=== PATIENT | female | born 1975 | race Caucasian/White ===

== ENCOUNTER 2022-02-07 15:53 | Outpatient (CLI) | payer MEDICAID, SELFPAY ==
--- NOTE | 2022-02-07 16:10 | RAD_ITS ---
STUDY: RIGHT KNEE--2 VIEWS 1619 HOURS 02/07/2022 REASON FOR EXAM: 46-year-old female with right knee pain. TECHNIQUE: 2 view(s) of the knee. COMPARISON: None. FINDINGS: Normal visualized distal femur. Normal visualized proximal tibia and fibula. Normal proximal tibiofibular articulation. Normal medial femorotibial compartment. Normal lateral femorotibial compartment. Normal patellofemoral articulation. No osseous lytic, sclerotic or mass lesions. Minimal osteophytic degenerative change of the upper patella. No significant arthritic or degenerative changes of the knee joint, which is balanced. The soft tissue structures are unremarkable. RAD/Knee 1 or 2 Views IMPRESSION: 1. Minimal osteophytic degenerative changes of the upper patella. 2. No significant arthritic or degenerative changes of the knee joint. 3. No fractures or dislocations. 4. No osseous lytic, sclerotic or mass lesions. 5. Normal surrounding soft tissues. Electronically Signed: Blaise Delaney MD at 19:45 EDT ,
[2022-02-07 16:48] LABS: Absolute Lymphocyte Count 2.23 X10^3/uL (0.83-4.51); Absolute Neutrophil Count 7.8 X10^3/uL (2.0-7.7); Basophil# 0.05 X10^3/uL; Basophil% 0.5 % (0-1); Eosinophils% 0.9 % (0-5); Hemoglobin 11.6 g/dL (12.0-15.0); Lymphocyte # 2.23 X10^3/ul (0.83-4.51); Lymphocyte % 20.4 % (19-41); Mean Corp Hgb Conc 33.1 g/dL (32-36); Mean Corpuscular Hgb 29.3 pg (27.0-32.0); Mean Corpuscular Volume 88.4 fL (81-99); Mean Platelet Vol. 9.9 fl (6.2-12.0); Monocyte# 0.72 X10^3/uL; Monocyte% 6.6 % (0-10); NRBC Flagged by Analyzer 0 % (0-5); Neutrophil % 71.1 % (47-70); Platelet Count 385 K/mm3 (150-450); RBC Distribution Width CV 12.6 % (11.6-14.6); RBC Distribution Width SD 40.9 fl (35.1-43.9); Red Blood Count 3.96 M/mm3 (4.2-5.4)
[2022-02-07 17:20] LABS: ALB/GLOB Ratio 0.8 RATIO (0.9-2.4); AST(SGOT) 12 U/L (15-37); Alanine Aminotransfer ALT/SGPT 17 U/L (13-56); Albumin, Serum 3.4 g/dL (3.2-5.0); Alkaline Phosphatase 64 U/L (45-117); Anion Gap 5 (5-15); BUN 7 mg/dL (7-18); BUN/Creat Ratio 11.1 RATIO (10-20); Calcium,Total 9.1 mg/dL (8.5-10.1); Chloride 108 mmol/L (98-107); Creatinine, Serum 0.63 mg/dL (0.55-1.02); EST Glomerular Filtration Rate 108 mL/min (>60); Est Glom Filt Rate - Afr Amer 131 mL/min (>60); Globulin 4.2 g/dL (2.2-4.2); Glucose 90 mg/dL (74-106); Potassium 3.9 mmol/L (3.5-5.1); Protein, Total 7.6 g/dL (6.4-8.2); Sodium Level 139 mmol/L (136-145); T4 Free Direct 0.92 ng/dL (0.76-1.46); Thyroid Stim Hormone (TSH) 1.09 uIU/mL (0.358-3.74)
[2022-02-08 11:10] LABS: Iron 98 ug/dL (50-170); Iron Binding Capacity,Total 449 ug/dL (250-450)
== END 2022-02-07 23:59 | disposition home or self-care (01) ==
PROVIDERS: Referring Provider Nurse Practitioner Adult Health; Visit Provider Nurse Practitioner Adult Health
DX: R53.83 Other fatigue (principal); D64.9 Anemia, unspecified; M25.561 Pain in right knee
CPT/HCPCS: 36415; 73560; 80053; 82746; 83540; 83550; 84439; 84443; 85025

== ENCOUNTER 2022-02-16 11:19 | Outpatient (CLI) | payer MEDICAID, SELFPAY ==
--- NOTE | 2022-02-16 11:24 | US_ITS ---
STUDY: ULTRASOUND OF THE FEMALE PELVIS - COMPLETE REASON FOR EXAM: Female, 46 years old. 3 month history of dysmenorrhea and left pelvic pain. LMP: 02/12/2022. TECHNIQUE: Transabdominal and Transvaginal TECHNICAL QUALITY: Adequate. COMPARISON: None. FINDINGS: The uterus is anteverted and is in a midline position. The uterus measures 9.5 cm x 5.1 cm x 4.6 cm. There is a Nabothian cyst of the cervix. The endometrium measures 6 mm in thickness, and is hyperechoic. There is no demonstrated endometrial mass. There is a 3 cm x 2.3 cm x 2.2 cm fibroid in the body of the uterus. I.U.D. - The patient does not have an I.U.D. The right ovary is visualized. The right ovary measures 2.9 cm by 2.4 cm x 1.6 cm. There is no right ovarian cyst or ovarian mass. There is no visualized right adnexal mass or complex lesion. There is normal arterial and normal venous vascularity. The left ovary is visualized. The left ovary is enlarged and measures 7 cm x 4.7 cm x 3.9 cm. There is a 3.5 cm x 3.5 cm x 3.5 cm complex cyst in the ovary. This may represent an hemorrhagic cyst. There is also evidence of a slightly complex echogenic nodule which shadowing measuring 3.2 cm x 3.6 x 3.3 cm in the left ovary. A dermoid should BE ruled out. There is no visualized left adnexal mass or complex lesion. There is normal arterial and normal venous vascularity. There is no fluid in the cul-de-sac. The pre void volume of the bladder was 416 ml. US/Pelvic (Non ) IMPRESSION: The left ovary is enlarged. There is a 3.5 cm x 3.5 cm x 3.5 cm complex cyst in the left ovary. There is also evidence of a 3.2 cm x 3.6 cm x 3.3 cm hyperechoic nodule with posterior acoustical shadowing in the left ovary. A dermoid should BE ruled out. Electronically Signed: Titus Brower MD at 13:52 EDT ,
--- NOTE | 2022-02-16 11:55 | US_ITS ---
STUDY: ULTRASOUND OF THE FEMALE PELVIS - COMPLETE REASON FOR EXAM: Female, 46 years old. 3 month history of dysmenorrhea and left pelvic pain. LMP: 02/12/2022. TECHNIQUE: Transabdominal and Transvaginal TECHNICAL QUALITY: Adequate. COMPARISON: None. FINDINGS: The uterus is anteverted and is in a midline position. The uterus measures 9.5 cm x 5.1 cm x 4.6 cm. There is a Nabothian cyst of the cervix. The endometrium measures 6 mm in thickness, and is hyperechoic. There is no demonstrated endometrial mass. There is a 3 cm x 2.3 cm x 2.2 cm fibroid in the body of the uterus. I.U.D. - The patient does not have an I.U.D. The right ovary is visualized. The right ovary measures 2.9 cm by 2.4 cm x 1.6 cm. There is no right ovarian cyst or ovarian mass. There is no visualized right adnexal mass or complex lesion. There is normal arterial and normal venous vascularity. The left ovary is visualized. The left ovary is enlarged and measures 7 cm x 4.7 cm x 3.9 cm. There is a 3.5 cm x 3.5 cm x 3.5 cm complex cyst in the ovary. This may represent an hemorrhagic cyst. There is also evidence of a slightly complex echogenic nodule which shadowing measuring 3.2 cm x 3.6 x 3.3 cm in the left ovary. A dermoid should BE ruled out. There is no visualized left adnexal mass or complex lesion. There is normal arterial and normal venous vascularity. There is no fluid in the cul-de-sac. The pre void volume of the bladder was 416 ml. US/Transvaginal Non- IMPRESSION: The left ovary is enlarged. There is a 3.5 cm x 3.5 cm x 3.5 cm complex cyst in the left ovary. There is also evidence of a 3.2 cm x 3.6 cm x 3.3 cm hyperechoic nodule with posterior acoustical shadowing in the left ovary. A dermoid should BE ruled out. Electronically Signed: Titus Brower MD at 13:52 EDT ,
== END 2022-02-16 23:59 | disposition home or self-care (01) ==
LOC: US 11:19
PROVIDERS: Visit Provider Nurse Practitioner Adult Health
DX: N94.6 Dysmenorrhea, unspecified (principal); R10.2 Pelvic and perineal pain; N83.519 Torsion of ovary and ovarian pedicle, unspecified side; R19.00 Intra-abdominal and pelvic swelling, mass and lump, unspecified site
CPT/HCPCS: 76830; 76856; 93976

== ENCOUNTER → 2022-03-22 | Outpatient (CLI) | payer MEDICAID, SELFPAY ==
--- NOTE | 2022-03-22 13:03 | BI_ITS ---
MAMMOGRAPHY - BILATERAL SCREENING REASON FOR EXAM: Female, 46 years old. Routine annual screening examination. PERTINENT HISTORY: Mother with breast cancer. Grandmother with breast cancer. History of prior bilateral breast reduction surgery. TECHNIQUE: Digital bilateral breast amada (3D mammographic acquisition) in the CC and MLO projections. 2-D mediolateral oblique (MLO) and craniocaudad (CC) views of both breasts were obtained. CAD: Full Field Digital Mammography with Computer Added Detection was performed. COMPARISON: Comparison is made with prior abdomen examination dated 12/27/2016. FINDINGS: Breast Composition: There are scattered areas of fibroglandular density. There are no dominant masses or suspicious calcifications. Stable small benign-appearing bilateral axillary lymph nodes. No other significant abnormalities are identified. There has been no significant change since the prior study. BI/SCRN MAMM (CAD)W/AMADA BILAT IMPRESSION: Stable bilateral screening mammogram. Yearly follow-up mammogram recommended. (A) ASSESSMENT CATEGORY: BIRADS Category 2: Benign. A letter regarding these results will be sent to the patient by the facility within 30 days. Approximately 10% of breast cancers are not detected by mammography. A normal mammogram should not delay biopsy of a clinically suspicious abnormality. [id number] Electronically Signed: Titus Brower MD at 14:15 EDT ,
== END | disposition home or self-care (01) ==
LOC: OPBI 13:01
PROVIDERS: Referring Provider Nurse Practitioner Adult Health; Visit Provider Nurse Practitioner Adult Health
DX: Z12.31 Encounter for screening mammogram for malignant neoplasm of breast (principal); Z80.3 Family history of malignant neoplasm of breast
CPT/HCPCS: 77063; 77067

== ENCOUNTER → 2024-06-19 | Outpatient (CLI) | payer BC, SELFPAY ==
--- NOTE | 2024-06-19 15:26 | BI_ITS ---
MAMMOGRAPHY - BILATERAL SCREENING REASON FOR EXAM: Female, 48 years old. Routine annual screening examination. PERTINENT HISTORY: Mother with breast cancer. Grandmother with breast cancer. TECHNIQUE: Digital bilateral breast amada (3D mammographic acquisition) in the CC and MLO projections. 2-D mediolateral oblique (MLO) and craniocaudad (CC) views of both breasts were obtained. CAD: Full Field Digital Mammography with Computer Added Detection was performed. COMPARISON: Comparison is made with prior study March 22, 2022. FINDINGS: Breast Composition: The breasts are almost entirely fatty. There are no dominant masses or suspicious calcifications. Stable small axillary lymph nodes. No other significant abnormalities are identified. There has been no significant change since the prior study. BI/SCRN MAMM (CAD)W/AMADA BILAT IMPRESSION: Stable bilateral screening mammogram. Yearly follow-up mammogram recommended. (A) ASSESSMENT CATEGORY: BIRADS Category 2: Benign. A letter regarding these results will be sent to the patient by the facility within 30 days. Approximately 10% of breast cancers are not detected by mammography. A normal mammogram should not delay biopsy of a clinically suspicious abnormality. [id number] Electronically Signed: Titus Brower MD at 8:46 EDT ,
== END | disposition home or self-care (01) ==
LOC: OPBI 15:24
PROVIDERS: Referring Provider Nurse Practitioner Family; Visit Provider Nurse Practitioner Family
DX: Z12.31 Encounter for screening mammogram for malignant neoplasm of breast (principal)
CPT/HCPCS: 77063; 77067

== ENCOUNTER 2024-11-29 10:09 | Day surgery (SDC) | payer BC, SELFPAY ==
--- NOTE | 2024-11-11 12:32 | PCM.HP.BLA ---
History and Physical Date of Admission: 11/29/24 HPI: The patient is a 49 year old female presenting for pre-operative visit. She is scheduled for laparoscopic left salpingo-oophorectomy and right salpingectomy, for left ovarian dermoid cyst and sterilization request on 11/29/23. Procedure discussed along with risks, benefits and complications. Other alternatives discussed for management. Consent form signed? Yes. PAST MEDICAL HISTORY PAST MEDICAL HISTORY Diagnosis Date ? Dermoid cyst 2 on one ovary ? Migraine ? Obesity (BMI 30-39.9) PAST SURGICAL HISTORY PAST SURGICAL HISTORY Procedure Laterality Date ? CAUTERY CERVIX CRYOCAUTERY INITIAL/REPEAT CERVIX ? SECTION HX 2004 ? COLPOSCOPY CERVIX VAG LOOP ELTRD BX CERVIX LEEP- ? INSERTION OF IUD 05/11/2022 Mirena ? REVISE BREAST RECONSTRUCTION 1992 REDUCTION CURRENT MEDICATIONS Current Outpatient Medications Medication Sig Dispense Refill ? levonorgestrel (MIRENA) 20 mcg/24 hours (7 yrs) 52 mg IUD 1 Each by INTRAUTERINE route as directed. 1 Each 0 ? ibuprofen (MOTRIN ORAL) Take by mouth. No current facility-administered medications for this visit. ALLERGIES: Amoxicillin and Sulfa (Sulfonamide Antibiotics) PERSONAL HISTORY: SOCIAL HISTORY Social History Tobacco Use ? Smoking status: Never ? Smokeless tobacco: Never Vaping Use ? Vaping status: Never Used Substance Use Topics ? Alcohol use: No ? Drug use: No FAMILY HISTORY: FAMILY HISTORY FAMILY HISTORY Problem Relation Age of Onset ? Breast Cancer Mother triple negative ? Hypertension Father ? other (bladder cancer) Paternal Grandmother REVIEW OF SYMPTOMS: GENERAL: denies fevers or chills ENDOCRINOLOGY: has not been on steroids Cardiology : denies palpitations or chest pain Respiratory: denies SOB or cough Hematology: denies history of prolonged bleeding or easy bruising or VTE Allergy: Denies history of personal or family history of allergy to anesthesia PHYSICAL EXAMINATION: VITALS: Blood pressure 122/74, pulse 84, resp. rate 20, height 158.3 cm (5' 2.32), weight 117.4 kg (258 lb 12.8 oz), last menstrual period 10/03/2024, SpO2 97%. GENERAL: The patient is well nourished, well hydrated in no acute distress. , The patient is oriented to time, place, and person. NECK: Supple. No lynphadenopathy, normal thyroid, no thyromegaly. LUNGS: Clear to auscultation bilaterally. no wheezes, rhonchi or rales HEART: Regular rate and rhythm, Normal heart sounds, and No murmurs or gallops IMPRESSION: Left ovarian cyst and sterilization request PLAN: The risks/benefits/alternatives and personal involved for the planned laparoscopic left salpingo-oophorectomy and right salpingectomy were reviewed with the patient. Her questions were answered to her satisfaction and she desires to proceed. Consent was signed. I reviewed with her postop instructions and expectations. I have reviewed and updated past medical and surgical history, medications and allergies Assessment & Plan Assessment/Plan (1) Dermoid cyst of left ovary: PLAN: 2 cysts approx 4 cm on US (2) Sterilization:
--- NOTE | 2024-11-28 13:08 | EKG12_ITS ---
Test Reason : PREOP Blood Pressure : */* mmHG Vent. Rate : 63 BPM Atrial Rate : 63 BPM P-R Int : 128 ms QRS Dur : 94 ms QT Int : 428 ms P-R-T Axes : 62 54 53 degrees QTcB Int : 437 ms Normal sinus rhythm Normal ECG Confirmed by Jermaine Gorman ([id number]), news editor KAYLEY CARTAGENA ([id number]) on 11/29/2024 5:57:55 AM Referred By: Viviane Manzo Confirmed By: Jermaine Gorman
[2024-11-28 13:41] LABS: Hematocrit 35.2 % (37-47); Hemoglobin 11.6 g/dL (12.0-15.0); Mean Corpuscular Hgb 29.4 pg (27.0-32.0); Mean Corpuscular Volume 89.3 fL (81-99); Mean Platelet Vol. 9.7 fl (6.2-12.0); Platelet Count 304 K/mm3 (150-450); RBC Distribution Width CV 12.8 % (11.6-14.6); RBC Distribution Width SD 41.6 fl (35.1-43.9); Red Blood Count 3.94 M/mm3 (4.2-5.4); White Blood Count 10.1 K/mm3 (4.4-11.0)
[2024-11-29] VITALS (9 sets, daily range): BP systolic 139–168; BP diastolic 83–94; PULSE 74–93; RESP 16; TEMP 36.3–36.6; O2SAT 96–100; BMI 47.5
[2024-11-29] MEDS: Celecoxib 200 MG Capsule PO (10:41)
[2024-11-29] MEDS: Acetaminophen 500 MG Tablet 1000 MG PO (10:42)
[2024-11-29] MEDS: 0.9% Normal Saline (1000mL) 1,000 ML 15 ML IV (10:42)
[2024-11-29 10:52] LABS: Internal QC Validated? YES +Cl - CLEAR BKGD; Pregnancy, Urine Negative Negative
--- NOTE | 2024-11-29 11:02 | PCM.PRE.AN2 ---
ASA Classification* ASA Classification ASA Classification: 3 (due to increased BMI) Assessment & Plan Anesthesia* Anesthesia Assessment Anesthesia Assessment: Discussed sedation and/or anesthesia options, risks, benefits, and alternatives with patient/parents/legal guardian/POA. Questions invited. The patient/parents/legal guardian/POA seems to understand and agrees to proceed with anesthesia plan. Reviewed the physical assessment, medical history, allergy history and patient home medications list prior to surgery/procedure/anesthetic and documented any changes. Performed airway and anesthesia risk assessments. Anesthesia Type Anesthesia Type: General History Source History Obtained from:: Patient and Chart Anesthesia Focused Assessment* Temperature: 97.4 F Pulse Rate: 74 Blood Pressure: 139/83 Respiratory Rate: 16 Pulse Ox: 98 Oxygen Delivery Method: Room Air Airway Assessment Mouth opens: >3 cm Mallampati Score: II Teeth Condition: Intact Neck Range of motion (ROM): Full ROM Focused Labs Anesthesia Preop lab: CBC WBC 10.1 K/mm3 (4.4-11.0) 11/28/24 13:26 RBC 3.94 M/mm3 (4.2-5.4) L 11/28/24 13:26 Hgb 11.6 g/dL (12.0-15.0) L 11/28/24 13:26 Hct 35.2 % (37-47) L 11/28/24 13:26 Plt Count 304 K/mm3 (150-450) 11/28/24 13:26 CHEMISTRY Potassium 3.9 mmol/L (3.5-5.1) 02/07/22 16:28 Sodium 139 mmol/L (136-145) 02/07/22 16:28 BUN 7 mg/dL (7-18) 02/07/22 16:28 Creatinine 0.63 mg/dL (0.55-1.02) 02/07/22 16:28 Glucose 90 mg/dL (74-106) 02/07/22 16:28 TSH 1.09 uIU/mL (0.358-3.74) 02/07/22 16:28 COAG Urine Test Negative Negative 11/29/24 10:21 Pre-Assessment Diagnosis/Proposed Procedure Planned Operative Procedure(s): LAP LEFT SALPINGOOPHERECTOMY AND RIGHT SALPINGECTOMY Anesthesia History Anesthesia History - performance improvement specialist: Anesthesia History - performance improvement specialist Hx Hospitalization No 11/15/24 10:54 Any Problems With Anesthesia No 11/15/24 10:54 Cholinesterase deficiency No 11/15/24 10:54 You/Your Family Experience No 11/15/24 10:54 fever (hyperthermia) with Relationship Recent Exposure to Contagious No 11/29/24 10:36 Disease Does patient have nerve No 11/15/24 10:54 stimulator Patient instructed to have device shut off --Does patient have Pacemaker No 11/29/24 10:36 or ICD? When Was Last Pacemaker Check QUESTION #4 FULL TEXT: You/Your Family Experience fever (hyperthermia) with Anesthesia Last Oral Intake Last Oral intake: Last Oral Intake NPO since 00:00 11/29/24 10:36 Meds taken in AM with sips of No 11/29/24 10:36 water? Meds patient instructed to take am of surgery PONV PONV - performance improvement specialist: PONV - performance improvement specialist Female Yes 11/15/24 10:54 HX of Motion Sickness No 11/15/24 10:54 HX of N/V After Surgery No 11/15/24 10:54 Non-Smoker Yes 11/15/24 10:54 Duration of Surgery greater Yes 11/15/24 10:54 than 60 minutes Number of Risk Factors 3 11/15/24 10:54 PONV Score Moderate Risk 11/15/24 10:54 Height & Weight Height & Weight: Anesthesia: Height & Weight Height 5 ft 2 in 11/29/24 10:36 Weight: 118 kg 11/29/24 10:36 Body Mass Index (BMI) 47.5 11/29/24 10:36 Respiratory Assessment Respiratory Assessment - performance improvement specialist: Respiratory Tract Infection Hx - performance improvement specialist Hx Respiratory Tract Infection No 11/15/24 10:54 STOP Sleep Apnea STOP Sleep Apnea - performance improvement specialist: STOP Sleep Apnea - performance improvement specialist Hx Hypertension No 11/15/24 10:54 Hx Sleep Apnea No 11/15/24 10:54 CPAP BIPAP Do you snore loudly (louder Yes 11/15/24 10:54 than talking or can be heard Do you often feel tired/ No 11/15/24 10:54 fatigued/ sleepy during daytime? Has anyone observed you stop No 11/15/24 10:54 breathing during sleep? STOP Results Negative 11/15/24 10:54 QUESTION #5 FULL TEXT : Do you snore loudly (louder than talking or can be heard through closed doors)? Tobacco Use History Tobacco Use History - performance improvement specialist: Tobacco Use History - performance improvement specialist Tobacco Use Smoking Status Never smoker 11/15/24 10:54 Hx Tobacco Use No 11/15/24 10:54 Years Smoking Packs Smoked per Day Smoking Cessation Date was within the last 15 years Hx Smoking Cessation Date Hx Smoking Cessation Counseling Hematologic Medial History Hematologic Hx - performance improvement specialist: Hematologic Medical Hx - munitions handler Hx of Blood Transfusion No 11/15/24 10:54 Hx of Transfusion in last 3 No 11/15/24 10:54 Months Date of Last Transfusion (if within last 3 months) Ever experience any problems No 11/15/24 10:54 with transfusion(s)? Specify any problems Hx of Preganancy in last 3 No 11/15/24 10:54 Months Nurse Filling Out Transfusion DSCHRIBER 11/15/24 10:54 & Questions: Date: 11/15/24 11/15/24 10:54 Time: 10:56 11/15/24 10:54 Patient unable to answer at this time (ie. confused, unrespo /Reproduction History /Reproductive History - performance improvement specialist: /Reproductive Hx- performance improvement specialist Hx Now No 11/15/24 10:54 Gestational Age (in weeks): EDC: Hx Hx Para Hx Section SAB No 11/15/24 10:54 Active Medications Active Medications: Current Medications Generic Name Dose Route Start Last Admin Trade Name Freq PRN Reason Stop Dose Admin Sodium Chloride 1,000 mls @ 15 mls/hr 11/29/24 10:15 11/29/24 10:42 IV 12/04/24 23:34 15 mls/hr .Q48H RYAN Administration Protocol PFSH Medical History Anemia Back pain Migraine headache Shortness of breath on exertion Non-smoker History of edema Home Medications ?Medication ?Instructions ?Recorded ?Last Taken ?Type multivitamin (Daily Multi-Vitamin 1 tab PO DAILY 11/15/24 Unknown History tablet) Allergy/AdvReac Type Severity Reaction Status Date / Time amoxicillin Allergy Intermediate Hives Verified 11/29/24 10:34 Sulfa (Sulfonamide Allergy Intermediate Rash Verified 11/29/24 10:34 Antibiotics) Surgical History Hx of bilateral breast reduction surgery History of Social History Smoking Status: Never smoker Review of Systems (Anesthesia) ROS Narrative System reviewed and no additional complaints, except as documented.
--- NOTE | 2024-11-29 11:45 | OV_PTH ---
PATIENT: SANDRA DAVIS LOC: [facility] [place] U#:[id number] AGE/SX: 49/F ROOM: RE11/29/[address]: Dr. Viviane Manzo MD : 1975 BED: DIS: 11/29/2024 SPEC #: [id number] RECD: 11/29/24 13:49 STATUS: SUDARSHAN SÁNCHEZ #: [id number] ARA: 11/29/24 11:[address]: Viviane Manzo DEPT: SURGICAL PATHOLOGY RECD BY: Beulah Campos ENTERED: 11/29/24 14:26 SP TYPE: OVARY OTHR DR: Steven Tucker MD Tissues: OVARIAN CYST Procedures: Surgery Specimen Level IV HEADER OPERATION: Laparoscopic left salping-oopherectomy, right salpingectomy PRE-OP DIAGNOSIS: Dermoid cyst of left ovary, sterilization TISSUE SUBMITTED: Left fallopian tube and ovary, right fallopian tube MICROSCOPIC DIAGNOSIS Left fallopian tube and ovary, right fallopian tube, right salpingectomy, left salping-oopherectomy: Right fallopian tube - no pathologic diagnosis. Left fallopian tube - no pathologic diagnosis. 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 KRANTHI. 12/02/2024 MICROSCOPIC DESCRIPTION Slides are reviewed. GROSS DESCRIPTION Received in fixative is one container labeled with the patient's name and designated Left fallopian tube and ovary and right fallopian tube. The specimen consists of right fallopian tube and left fallopian tube with adjacent ovary. The right fallopian tube measures 5.5cm in length and 0.7cm in diameter. The fimbrial end is identified. Sections reveal unremarkable cut surfaces. Left fallopian tube measures 4.0cm in length and 0.6cm in diameter. It is similar appearance to right. No tubo-ovarian adhesions are noted. Previously partially opened cystic ovary measures 7.5 x 5.0 x 1.5cm and weighs 23gm. Outer surface is smooth. Multiple hairs are coming out of area of rupture. The inner cyst wall is smooth and shows a focal solid area measuring 2.0 x 1.5 x 1.5cm. Data Security Administrator sections are submitted in six cassettes as follows: 1-right fallopian tube, 2- left fallopian tube, 3-6- ovary. Entire solid area is submitted. 11/29/2024 TC:1 CPT:51784,23026i4
[2024-11-29] MEDS: Bupivacaine Mpf 0.5% 30 ML VIAL (12:37)
--- NOTE | 2024-11-29 12:51 | PCM.DC ---
Discharge Instructions Diet Discharge Diet: No restrictions (Increase fluid intake for the next 48 hours.) DC O2, CPAP, BIPAP needs Home O2 Discharge instructions: No Dressing / Incision Return to work on:: 12/02/24 May shower in (days): 1 May resume sexual activity in: 1-2 weeks Lifting Restrictions: 15 lbs x 3 weeks Additional Activity Instructions:: Ambulate often the next week after surgery. Nothing in the vagina for 5 days. Dressing / Incision Call your doctor if your incision/area has: Continuous Slow Oozing, Sudden Increased Bleeding, Increased Pain/ Swelling, Increased Redness and Foul Smelling Discharge Call your doctor if you observe: Fever of 101 or Higher Cleanse incision/area with: Soap & Water and - (Your incisions have skin glue, leave it on until it falls off. ) Follow Up Care Please Follow Up With: Viviane Manzo MD When: Call [phone] to schedule a follow up appointment or send a [employer] message as needed Test Results: Test results from this visit will be discussed in further detail at your follow-up appointment, if applicable. Discharge Plan Admission Primary Reason for Your Visit: Laparoscopic left salpingoohporectomy, right salpingectomy Attending Provider: Viviane Manzo Primary Care Provider: Steven Tucker Instructions Print Language: Tristanian Discharge Orders/Prescriptions Prescriptions: New ibuprofen 600 mg tablet 600 mg PO Q6H PRN (Reason: Pain) 20 Days Qty: 60 1RF No Action multivitamin [Daily Multi-Vitamin] Tablet 1 tab PO DAILY [facility] - Disposition Disposition (needs filled in before D/C Order can be placed): Home, Self Care
--- NOTE | 2024-11-29 12:53 | PCM.OPRPT ---
Problems Associated Problem List Diagnoses (1) Sterilization: (2) Dermoid cyst of left ovary: Operative Report (Standard) Operative Information Date of Procedure: 11/29/24 Pre-Operative Diagnosis: sterilization request, left dermoid cyst of the ovaries Post-Operative Diagnosis: same Surgery/Procedure Performed: Laparoscopic LSO, right salpingectomy residential solar consultant: Yes Entomology Teacher: Billie Fernando Tasks completed by golf course assistant: Dissecting tissue, Insert Trochanter and Hemostasis: Electrocautery Additional clinical assistant professor?: No Type of Anesthesia: General RN Documented Start/Stop Times: Operation Date: 11/29/24 11:45 Case Time Into Pre-Op 11/29/24 10:14 Out of Pre-Op 11/29/24 11:04 Anesthesia Start 11/29/24 11:10 Into Room 11/29/24 11:10 Procedure Start 11/29/24 11:30 Procedure End 11/29/24 12:43 Procedure Start Time: 11:30 Procedure Stop Time: 12:43 Select all DRAINS/GRAFTS/IMPLANTS that apply: None Special Medications: none Estimated Blood Loss: 20 Fluids Replaced: 800 Specimen collected: Yes Description of specimen(s) removed: left fallopian tube and ovary, right fallopian tube Description of surgery: The patient was taken to the operating room where she was prepped and draped in the dorsolithotomy position. A weighted speculum was placed in the vagina and the anterior lip of the cervix was grasped with a tenaculum. The Gisela uterine manipulator was placed and the remainder of the instruments were removed from the vagina. Care was taken not to disengage the IUD. Attention was turned to the abdomen. All port sites were infiltrated with 0.5% Marcaine before skin incisions were made. A intraumbilical incision was made. Dissection proceeded down to the fascia which was grasped with Halima clamps and tented up. The fascia was incised with a scalpel. The peritoneum was then entered sharply and the Goodwin trocar placed. The pneumoperitoneum was created the patient was straight placed in Trendelenburg and right and left lateral ports were placed under direct visualization after the skin was infiltrated with 0.5% Marcaine solution. The pneumoperitoneum was created and the underlying abdominal contents were intact. The patient was placed in Trendelenburg. There were some significant adhesions of the omentum around our ports that made the visualization more difficult because the scope kept touching them and getting cloudy when we were trying to place the laparoscope and the instruments. The LigaSure device was used to clamp seal and transect the antimesenteric portions of the right tube to the cornual insertion of the uterus. The tube was amputated from the uterus and the pedicles were all confirmed to be hemostatic. The right infundibulopelvic ligament was identified, clamped, sealed and transected with the LigaSure device. The utero-ovarian ligament on the left side was clamped, sealed and transected with the LigaSure device and any remaining tissue was clamped sealed and transected with the LigaSure device to remove complete removal of the entire left tube and ovary. The pedicles were again examined and found to be hemostatic. The Endo Catch bag was placed through the Goodwin port and the specimen placed in the bag and brought up to the abdomen. Some fluid was drained out of the ovary with a needle and a syringe in order to decompress the specimen slightly and allow it to pass through the incision. No contents were spilled in the abdominal cavity. The fascia was then closed with 0 Vicryl suture in a running standard fashion. The skin incisions were closed with Monocryl suture in a subcuticular fashion and skin glue . The vaginal instruments were removed and the vaginal sweep was completed by me. The IUD strings were visible at the end of the procedure. The procedure was performed by me with assistance other than as dictated above. All sponge and needle counts were correct and the patient was taken to the recovery room in stable condition. No qualified residents were available for this case Surgical Findings: enlarged dermoid of left ovary, normal tubes, normal right ovary, normal cervix and vagina. Some adhesions of omentum to upper abdomen Complications Complications: No Admit VTE Documentation VTE Present on Admission: No VTE Mechan Device Prophylaxis: None VTE Pharm Prophylaxis ordered?: No
[2024-11-29] MEDS: oxyCODONE 5 MG Tablet PO (14:02)
--- NOTE | 2024-11-29 21:37 | PCM.POST.ANE ---
Anesthesia: Postop Eval I Current Vital Signs Temperature: 97.9 F Pulse Rate: 93 Blood Pressure: 160/88 Respiratory Rate: 16 Pulse Ox: 99 Oxygen Delivery Method: Nasal Cannula Oxygen Flow Rate (L/min): 4 Assessment Airway patent: Yes Spontaneous unlabored respirations: Yes Mental status: Asleep nausea: No Vomiting: No Anesthesia Complication: No Fluid Hydration Crystalloid volume administer (ml): 200 Total IV fluid infused: 200 Progress Note Anesthesia document: Postop Eval 1 completed: Yes
--- NOTE | 2024-11-29 21:46 | PCM.POSTANE2 ---
Anesthesia Postop Eval I Sum Postop Eval Completion status Anesthesia document: Postop Eval 1 completed: Yes Anesthesia Postop Eval I Summary Anesthesia Postop Eval I Summary: Anesthesia Postop Eval I: Assessment Summary Airway patent Yes 11/29/24 21:40 Spontaneous unlabored Yes 11/29/24 21:40 respirations Mental status Asleep 11/29/24 21:40 nausea No 11/29/24 21:40 Vomiting No 11/29/24 21:40 Anesthesia Postop Eval I: Fluid Summary Crystalloid volume administer 200 11/29/24 21:45 (ml) Colloids volume administered ( ml) Blood Product volume administered (ml) Total IV fluid infused 200 11/29/24 21:45 Anesthesia Postop Eval I: Summary Notes Anesthesia Complication No 11/29/24 21:40 Anesthesia Complication Comment: Post-operative progress note Anesthesia: Postop Eval II Evaluation Mental status: Awake and Calm Pain Level: 1 nausea: No Vomiting: No Complications Anesthesia Complication: No
== END 2024-11-29 14:29 | disposition home or self-care (01) ==
LOC: SDC 10:13 → AC 10:14
PROVIDERS: PCP Family Medicine; Referring Provider Obstetrics & Gynecology; Visit Provider Obstetrics & Gynecology
PROC: (CPT 58661; principal; 2024-11-29 11:30)
DX: D27.1 Benign neoplasm of left ovary (principal); K66.0 Peritoneal adhesions (postprocedural) (postinfection); Z30.2 Encounter for sterilization; Z97.5 Presence of (intrauterine) contraceptive device
CPT/HCPCS: 58661; 00840; 36415; 81025; 85027; 86850; 86900; 86901; 88305; 93005

== ENCOUNTER 2025-02-10 07:25 | Day surgery (SDC) | payer BC, SELFPAY ==
[2025-02-10] VITALS (8 sets, daily range): BP systolic 108–155; BP diastolic 66–92; PULSE 60–75; RESP 16–18; TEMP 36.2–36.9; O2SAT 97–100; BMI 48.5
--- NOTE | 2025-02-10 08:08 | PCM.PRE.AN2 ---
ASA Classification* ASA Classification ASA Classification: 3 Assessment & Plan Anesthesia* Anesthesia Assessment Anesthesia Assessment: Discussed sedation and/or anesthesia options, risks, benefits, and alternatives with patient/parents/legal guardian/POA. Questions invited. The patient/parents/legal guardian/POA seems to understand and agrees to proceed with anesthesia plan. Reviewed the physical assessment, medical history, allergy history and patient home medications list prior to surgery/procedure/anesthetic and documented any changes. Performed airway and anesthesia risk assessments. Anesthesia Type Anesthesia Type: MAC History Source History Obtained from:: Patient and Chart Anesthesia Focused Assessment* Temperature: 98.5 F Pulse Rate: 75 Blood Pressure: 155/92 Respiratory Rate: 18 Pulse Ox: 100 Oxygen Delivery Method: Room Air Airway Assessment Mouth opens: >3 cm Mallampati Score: I Teeth Condition: Intact and Missing (Patient missing right lower molar. #31.) Neck Range of motion (ROM): Full ROM Focused Labs Anesthesia Preop lab: CBC WBC 10.1 K/mm3 (4.4-11.0) 11/28/24 13:26 11/28/24 RBC 3.94 M/mm3 (4.2-5.4) L 11/28/24 13:26 11/28/24 Hgb 11.6 g/dL (12.0-15.0) L 11/28/24 13:26 11/28/24 Hct 35.2 % (37-47) L 11/28/24 13:26 11/28/24 Plt Count 304 K/mm3 (150-450) 11/28/24 13:26 11/28/24 CHEMISTRY Potassium 3.9 mmol/L (3.5-5.1) 02/07/22 16:28 02/07/22 Sodium 139 mmol/L (136-145) 02/07/22 16:28 02/07/22 BUN 7 mg/dL (7-18) 02/07/22 16:28 02/07/22 Creatinine 0.63 mg/dL (0.55-1.02) 02/07/22 16:28 02/07/22 Glucose 90 mg/dL (74-106) 02/07/22 16:28 02/07/22 TSH 1.09 uIU/mL (0.358-3.74) 02/07/22 16:28 02/07/22 COAG Urine Test Negative Negative 11/29/24 10:21 11/29/24 Pre-Assessment Diagnosis/Proposed Procedure Planned Operative Procedure(s): COLONOSCOPY-OA Anesthesia History Anesthesia History - compensation programs manager: Anesthesia History - compensation programs manager Hx Hospitalization No 02/07/25 12:58 Any Problems With Anesthesia No 02/07/25 12:58 Cholinesterase deficiency No 02/07/25 12:58 You/Your Family Experience No 02/07/25 12:58 fever (hyperthermia) with Relationship Recent Exposure to Contagious No 02/10/25 07:48 Disease Does patient have nerve No 02/07/25 12:58 stimulator Patient instructed to have device shut off --Does patient have Pacemaker No 02/10/25 07:48 or ICD? When Was Last Pacemaker Check QUESTION #4 FULL TEXT: You/Your Family Experience fever (hyperthermia) with Anesthesia Last Oral Intake Last Oral intake: Last Oral Intake NPO since 06:30 02/10/25 07:48 Meds taken in AM with sips of No 02/10/25 07:48 water? Meds patient instructed to take am of surgery Any additional information?: Yes NPO since: 06:30 (Patient had water at 6:30 AM.) PONV PONV - compensation programs manager: PONV - compensation programs manager Female Yes 02/07/25 12:58 HX of Motion Sickness No 02/07/25 12:58 HX of N/V After Surgery No 02/07/25 12:58 Non-Smoker Yes 02/07/25 12:58 Duration of Surgery greater No 02/07/25 12:58 than 60 minutes Number of Risk Factors 2 02/07/25 12:58 PONV Score Moderate Risk 02/07/25 12:58 Height & Weight Height & Weight: Anesthesia: Height & Weight Height 5 ft 2 in 02/10/25 07:48 Weight: 120.4 kg 02/10/25 07:48 Body Mass Index (BMI) 48.5 02/10/25 07:48 Respiratory Assessment Respiratory Assessment - compensation programs manager: Respiratory Tract Infection Hx - compensation programs manager Hx Respiratory Tract Infection No 02/07/25 12:58 STOP Sleep Apnea STOP Sleep Apnea - compensation programs manager: STOP Sleep Apnea - compensation programs manager Hx Hypertension No 02/07/25 12:58 Hx Sleep Apnea No 02/07/25 12:58 CPAP BIPAP Do you snore loudly (louder No 02/07/25 12:58 than talking or can be heard Do you often feel tired/ No 02/07/25 12:58 fatigued/ sleepy during daytime? Has anyone observed you stop No 02/07/25 12:58 breathing during sleep? STOP Results Negative 02/07/25 12:58 QUESTION #5 FULL TEXT : Do you snore loudly (louder than talking or can be heard through closed doors)? Tobacco Use History Tobacco Use History - compensation programs manager: Tobacco Use History - compensation programs manager Tobacco Use Smoking Status Never smoker 02/07/25 12:58 Hx Tobacco Use No 02/07/25 12:58 Years Smoking Packs Smoked per Day Smoking Cessation Date was within the last 15 years Hx Smoking Cessation Date Hx Smoking Cessation Counseling Hematologic Medial History Hematologic Hx - compensation programs manager: Hematologic Medical Hx - manufacturing technician Hx of Blood Transfusion No 02/07/25 12:58 Hx of Transfusion in last 3 No 02/07/25 12:58 Months Date of Last Transfusion (if within last 3 months) Ever experience any problems No 02/07/25 12:58 with transfusion(s)? Specify any problems Hx of Preganancy in last 3 No 02/07/25 12:58 Months Nurse Filling Out Transfusion VCHRISTIN 02/07/25 12:58 & Questions: Date: 02/07/25 02/07/25 12:58 Time: 12:59 02/07/25 12:58 Patient unable to answer at this time (ie. confused, unrespo /Reproduction History /Reproductive History - compensation programs manager: /Reproductive Hx- compensation programs manager Hx Now No 02/07/25 12:58 Gestational Age (in weeks): EDC: Hx Hx Para Hx Section SAB No 02/07/25 12:58 PFSH Medical History Anemia Back pain Migraine headache Shortness of breath on exertion Non-smoker History of edema Sterilization Dermoid cyst of left ovary Home Medications ?Medication ?Instructions ?Recorded ?Last Taken ?Type multivitamin (Daily Multi-Vitamin 1 tab PO DAILY 11/15/24 Unknown History tablet) ibuprofen 600 mg tablet 600 mg PO Q6H PRN Pain 20 days #60 11/29/24 Unknown Rx TABLETS levonorgestrel (Mirena) 1 device intrauterine .Q5 YRS 02/07/25 Unknown History Allergy/AdvReac Type Severity Reaction Status Date / Time amoxicillin Allergy Intermediate Hives Verified 02/10/25 07:36 Sulfa (Sulfonamide Allergy Intermediate Rash Verified 02/10/25 07:36 Antibiotics) Family History Mother Breast cancer Triple negative Surgical History History of salpingo-oophorectomy Hx of bilateral breast reduction surgery History of Social History household members: none current occupational status: employed Smoking Status: Never smoker alcohol intake: never substance use type: does not use Review of Systems (Anesthesia) ROS Narrative System reviewed and no additional complaints, except as documented.
--- NOTE | 2025-02-10 08:30 | PCM.HP.STD ---
[facility] - General General Date of Admission: 02/10/25 Date of Service: 02/10/25 Chief Complaint: Screening colonoscopy HPI Narrative SANDRA DAVIS, is a 49 F who presents today for screening colonoscopy. She has not had a colonoscopy in the past. She does not take any medicines on daily basis. Overall she is in very good health. [facility] Medical History Anemia Back pain Migraine headache Shortness of breath on exertion Non-smoker History of edema Sterilization Dermoid cyst of left ovary Home Medications ?Medication ?Instructions ?Recorded ?Last Taken ?Type multivitamin (Daily Multi-Vitamin 1 tab PO DAILY 11/15/24 Unknown History tablet) ibuprofen 600 mg tablet 600 mg PO Q6H PRN Pain 20 days #60 11/29/24 Unknown Rx TABLETS levonorgestrel (Mirena) 1 device intrauterine .Q5 YRS 02/07/25 Unknown History Allergy/AdvReac Type Severity Reaction Status Date / Time amoxicillin Allergy Intermediate Hives Verified 02/10/25 07:36 Sulfa (Sulfonamide Allergy Intermediate Rash Verified 02/10/25 07:36 Antibiotics) Family History Mother Breast cancer Triple negative Surgical History History of salpingo-oophorectomy Hx of bilateral breast reduction surgery History of Social History household members: none current occupational status: employed Smoking Status: Never smoker alcohol intake: never substance use type: does not use ROS Constitutional Constitutional: Denies fatigue, fever(s), poor appetite, weight gain or weight loss Gastrointestinal Gastrointestinal: Denies belching, bloating, change in bowel habits, change in stool character, chewing difficulty, coffee ground emesis, constipation, cramping, diarrhea, dyspepsia, dysphagia, early satiety, excessive flatus, fecal incontinence, heartburn, hematemesis, hematochezia, hemorrhoids, loose stools, melena, nausea, odynophagia, rectal bleeding, tenesmus, vomiting or weight changes Vital Signs Vital Signs Vital Signs: 02/10/25 07:48 02/10/25 07:48 02/10/25 08:13 Temperature 98.5 F 98.5 F Temperature Source Temporal Pulse Rate 75 75 Respiratory Rate 18 18 Respiratory Pattern Normal Blood Pressure 155/92 H 155/92 H Blood Pressure Mean 113 Blood Pressure Source Monitor Blood Pressure Position Sitting Blood Pressure Location Left Arm Pulse Ox 100 100 Oxygen Delivery Method Room Air Room Air Weight Weight: 265 lb 6.985 oz Body Mass Index (BMI) 48.5 Physical Exam Const alert, oriented x3, no apparent distress and healthy appearing General Appearance: cooperative GI normal to inspection, nondistended, normoactive bowel sounds, soft to palpation, non-tender and non-distended Percussion: normal to percussion Rectal Exam: deferred Assessment & Plan Assessment/Plan (1) Encounter for screening for malignant neoplasm of colon: PLAN: She will undergo screening colonoscopy. She was explained alternatives, risk and benefits include not withstanding bleeding, tract, sepsis, perforation, need for return to . She will have an ASA of 3.
--- NOTE | 2025-02-10 09:04 | OP.COLON_ITS ---
Patient Name: Latoya Haney Procedure Date: 02/10/2025 8:37 AM Date of : 1975 Age: 49 Procedure: Colonoscopy Indications: Screening for colorectal malignant neoplasm Providers: Gabriel Cole DO Referring MD: Steven Tucker Md Medicines: Monitored Anesthesia Care Patient Profile: This is a 49 year old female. Refer to note in patient chart for documentation of history and physical. Last Colonoscopy: none. The patient's first colonoscopy is today. Complications: No immediate complications. Procedure: Pre-Anesthesia Assessment: - Prior to the procedure, a History and Physical was performed, and patient medications and allergies were reviewed. The patient is competent. The risks and benefits of the procedure and the sedation options and risks were discussed with the patient. All questions were answered and informed consent was obtained. Patient identification and proposed procedure were verified by the physician in the pre-procedure area. Mental Status Examination: alert and oriented. Airway Examination: normal oropharyngeal airway and neck mobility. Respiratory Examination: clear to auscultation. CV Examination: normal. Prophylactic Antibiotics: The patient does not require prophylactic antibiotics. Prior Anticoagulants: The patient has taken no anticoagulant or antiplatelet agents. ASA Grade Assessment: II - A patient with mild systemic disease. After reviewing the risks and benefits, the patient was deemed in satisfactory condition to undergo the procedure. The anesthesia plan was to use moderate sedation / analgesia (conscious sedation). Immediately prior to administration of medications, the patient was re-assessed for adequacy to receive sedatives. The heart rate, respiratory rate, oxygen saturations, blood pressure, adequacy of pulmonary ventilation, and response to care were monitored throughout the procedure. The physical status of the patient was re-assessed after the procedure. After I obtained informed consent, the scope was passed under direct vision. Throughout the procedure, the patient's blood pressure, pulse, and oxygen saturations were monitored continuously. The Colonoscope was introduced through the anus and advanced to the cecum, identified by appendiceal orifice and ileocecal valve. The colonoscopy was performed without difficulty. The patient tolerated the procedure well. The quality of the bowel preparation was good. The ileocecal valve, appendiceal orifice, and rectum were photographed. Scope In: 8:50:13 AM Scope Withdrawal Time 0 hours 6 minutes 44 seconds Scope Out: 8:58:34 AM Total Procedure Duration Time 0 hours 8 minutes 21 seconds Findings: The perianal and digital rectal examinations were normal. Multiple small-mouthed diverticula were found in the recto-sigmoid colon and sigmoid colon. The exam was otherwise without abnormality on direct and retroflexion views. Impression: - Diverticulosis in the recto-sigmoid colon and in the sigmoid colon. - The examination was otherwise normal on direct and retroflexion views. - No specimens collected. Recommendation: - Discharge patient to home. - Resume previous diet. - Continue present medications. - Repeat colonoscopy in 10 years for screening purposes. Procedure Code(s): --- Professional --- G0121, Colorectal cancer screening; colonoscopy on individual not meeting criteria for high risk CPT copyright 2021 [employer]. All rights reserved. The codes documented in this report are preliminary and upon personal fitness trainer review may be revised to meet current compliance requirements. Gabriel Cole DO 02/10/2025 9:04:33 AM This report has been signed electronically. Number of Addenda: 0 Note Initiated On: 02/10/2025 8:37 AM
--- NOTE | 2025-02-10 09:05 | OP.CCLET_ITS ---
02/10/2025 Steven Tucker Md Re : Colonoscopy procedure for Latoya Haney Dear [place] This procedure was performed on Monday, February 10, 2025. My impressions and recommendations are as follows: Impressions : - Diverticulosis in the recto-sigmoid colon and in the sigmoid colon. - The examination was otherwise normal on direct and retroflexion views. - No specimens collected. Recommendations : - Discharge patient to home. - Resume previous diet. - Continue present medications. - Repeat colonoscopy in 10 years for screening purposes. My findings are described in the full procedure note, which is enclosed. If I can be of further assistance, please feel free to contact me at . Sincerely, Gabriel Cole, 02/10/2025 9:04:33 AM This report has been signed electronically.
--- NOTE | 2025-02-10 09:05 | PCM.POST.ANE ---
Anesthesia: Postop Eval I Current Vital Signs Temperature: 97.1 F Pulse Rate: 72 Blood Pressure: 115/66 Respiratory Rate: 16 Pulse Ox: 99 Oxygen Delivery Method: Room Air Assessment Airway patent: Yes Spontaneous unlabored respirations: Yes Mental status: Awake and Calm nausea: No Vomiting: No Anesthesia Complication: No Fluid Hydration Crystalloid volume administer (ml): 40 Total IV fluid infused: 40 Progress Note Anesthesia document: Postop Eval 1 completed: Yes
--- NOTE | 2025-02-10 10:15 | PCM.POSTANE2 ---
Anesthesia Postop Eval I Sum Postop Eval Completion status Anesthesia document: Postop Eval 1 completed: Yes Anesthesia Postop Eval I Summary Anesthesia Postop Eval I Summary: Anesthesia Postop Eval I: Assessment Summary Airway patent Yes 02/10/25 09:06 [email or web address] Spontaneous unlabored Yes 02/10/25 09:06 [email or web address] respirations Mental status Awake,Calm 02/10/25 09:06 [email or web address] nausea No 02/10/25 09:06 [email or web address] Vomiting No 02/10/25 09:06 [email or web address] Anesthesia Postop Eval I: Fluid Summary Crystalloid volume administer 40 02/10/25 09:06 [email or web address] (ml) Colloids volume administered ( ml) Blood Product volume administered (ml) Total IV fluid infused 40 02/10/25 09:06 [email or web address] Anesthesia Postop Eval I: Summary Notes Anesthesia Complication No 02/10/25 09:06 [email or web address] Anesthesia Complication Comment: Post-operative progress note Anesthesia: Postop Eval II Evaluation Mental status: Awake Pain Level: 0 nausea: No Vomiting: No
== END 2025-02-10 09:46 | disposition home or self-care (01) ==
LOC: EN 07:26 → AC 07:29
PROVIDERS: PCP Family Medicine; Referring Provider Family Medicine; Visit Provider Internal Medicine Gastroenterology
PROC: 0DJD8ZZ Inspection of Lower Intestinal Tract, Via Natural or Artificial Opening Endoscopic (ICD-10-PCS; CPT 45378; principal; 2025-02-10 08:25)
DX: Z12.11 Encounter for screening for malignant neoplasm of colon (principal); K57.30 Diverticulosis of large intestine without perforation or abscess without bleeding
CPT/HCPCS: 45378; A4216; J2405

== ENCOUNTER → 2025-09-08 | Outpatient (CLI) | payer BC, SELFPAY ==
--- NOTE | 2025-09-08 11:53 | EKG12_ITS ---
Test Reason : PRE OP Blood Pressure : */* mmHG Vent. Rate : 62 BPM Atrial Rate : 62 BPM P-R Int : 126 ms QRS Dur : 92 ms QT Int : 426 ms P-R-T Axes : 63 34 66 degrees QTcB Int : 432 ms Normal sinus rhythm with sinus arrhythmia Normal ECG Confirmed by Jermaine Gorman ([id number]), loan expeditor ERIK AMANDA ([id number]) on 09/09/2025 11:04:53 AM Referred By: Jake De La Torre Confirmed By: Jermaine Gorman
[2025-09-08 13:09] LABS: Hematocrit 37.2 % (37-47); Hemoglobin 12.4 g/dL (12.0-15.0); Mean Corp Hgb Conc 33.3 g/dL (32-36); Mean Corpuscular Volume 90.7 fL (81-99); Mean Platelet Vol. 11.2 fl (6.2-12.0); Platelet Count 310 K/mm3 (150-450); RBC Distribution Width CV 13.4 % (11.6-14.6); RBC Distribution Width SD 44.5 fl (35.1-43.9); Red Blood Count 4.10 M/mm3 (4.2-5.4); White Blood Count 9.0 K/mm3 (4.4-11.0)
[2025-09-08 13:52] LABS: Anion Gap 13 (5-15); BUN 10 mg/dL (4-19); BUN/Creat Ratio 15.2 RATIO (10-20); Calcium,Total 9.7 mg/dL (7.6-11.0); Carbon Dioxide 23.1 mmol/L (21.0-32.0); Chloride 101 mmol/L (98-108); Glucose 86 mg/dL (70-99); Potassium 4.3 mmol/L (3.3-5.1)
== END | disposition home or self-care (01) ==
PROVIDERS: PCP Family Medicine; Referring Provider Otolaryngology; Visit Provider Otolaryngology
DX: Z01.818 Encounter for other preprocedural examination (principal)
CPT/HCPCS: 36415; 80048; 85027; 93005

== ENCOUNTER → 2025-09-15 | Outpatient (CLI) | payer BC, SELFPAY ==
--- NOTE | 2025-09-15 12:30 | ETH_PTH ---
PATIENT: SANDRA DAVIS LOC: [facility] U#:[id number] AGE/SX: 50/F ROOM: RE09/15/[address]: Dr. Jake De La Torre MD : 1975 BED: DIS: 09/15/2025 SPEC #: [id number] RECD: 09/16/25 15:01 STATUS: SUDARSHAN GONZALO #: [id number] ARA: 09/15/25 12:[address]: Jake De La Torre DEPT: SURGICAL PATHOLOGY RECD BY: Tino Medrano ENTERED: 09/16/25 15:47 SP TYPE: ETH TISS OTHR DR: Steven Tucker MD Tissues: A - Nasal septum, NOS Procedures: Decalcification bone/plaque Surgery Specimen Level III HEADER OPERATION: Septoplasty, submucous resection of inferior turbinates PRE-OP DIAGNOSIS: Nasal congestion, deviated nasal septum, hypertrophy of nasal turbinates TISSUE SUBMITTED: A- Nasal septum MICROSCOPIC DIAGNOSIS A. Nasal septum, septoplasty, submucous resection of inferior turbinates: - Hyaline cartilage and bone with reactive changes. MICROSCOPIC DESCRIPTION Slides are reviewed. GROSS DESCRIPTION A. Received in formalin labeled with the patient's name and date of . Designated as septum is a 2.8 x 2.5 x 0.7 cm aggregate of oconnell-white to red, irregular bone and cartilage fragments. Regulatory Affairs Strategy Specialist sections are submitted in 1 cassette, following decalcification. NM 09/16/2025 CPT:[id number]
== END | disposition home or self-care (01) ==
PROVIDERS: PCP Family Medicine; Referring Provider Otolaryngology; Visit Provider Otolaryngology
DX: R09.81 Nasal congestion (principal); J34.2 Deviated nasal septum; J34.3 Hypertrophy of nasal turbinates
CPT/HCPCS: 88304; 88311